=== PATIENT | female | born 2000 | race Caucasian/White ===

== ENCOUNTER 2020-01-29 00:20 | Inpatient (IN) | payer OTHER ==
[2020-01-29] MEDS ORDERED: TERBUTALINE 1 MG/1 ML INJ IVP PRN (01:18)
[2020-01-29] MEDS ORDERED: TERBUTALINE 1 MG/1 ML INJ SUB-Q PRN (01:18)
[2020-01-29] MEDS ORDERED: LIDOCAINE (2%) 20 MG/1 ML VIAL 20 ML MDV INFILTRATI ONE (01:18)
[2020-01-29] MEDS ORDERED: ePHEDrine SULFATE 50 MG/1 ML INJ IV PRN (01:18)
[2020-01-29] MEDS ORDERED: MINERAL OIL 30 ML ORAL LIQD PO PRN (01:18)
[2020-01-29] MEDS ORDERED: LACTATED RINGERS 1,000 ML ONE (01:22)
[2020-01-29] MEDS ORDERED: OXYTOCIN 20 UNIT/1000ML DRIP 20,000 MILLIUNITS/1,000 ML BAG IV ONE (01:23)
[2020-01-29] MEDS ORDERED: fentaNYL 100 MCG/2 ML INJ IV ONE (01:25)
[2020-01-29] MEDS ORDERED: LACTATED RINGERS 1,000 ML IV SCH ×2 (02:00→03:00)
[2020-01-29 02:01] LABS: Hematocrit 38.9 % (30.3-42.9); Hemoglobin 13.4 gm/dl (10.1-14.3); Mean Corpuscular HGB Conc 35 % (30-34); Mean Corpuscular Volume 94 fl (79-97); Platelet Count 193 K/mm3 (140-440); Red Blood Count 4.14 M/mm3 (3.65-5.03); Red Cell Distribution Width 14.6 % (13.2-15.2)
[2020-01-29] MEDS ORDERED: BUTORPHANOL 2 MG/1 ML INJ IV PRN (02:37)
[2020-01-29] MEDS: OXYTOCIN 20 UNIT/1000ML DRIP 20 UNITS/1,000 ML BAG IV SCH ×2 (02:52→03:43)
--- NOTE | 2020-01-29 03:06 | History and Physical Report ---
History of Present Illness Date of examination: 01/29/20 Date of admission: 01/29/2020 Chief complaint: Active labor at term History of present illness: 19yo, @ 39.5, initiated care with [facility] at 8.2 wks gestation. Her has been complicated by hyperemesis. She presents to [facility] with reports of regular painful ctxs and was found to have advanced cervical dilation. Reports + FM. Denies any VB or LOF. Labs: A+, antibody negative; rubella immune; VDRL negative; urine culture negative; HBsAg negative; HIV negative; GC/Chlamydia negative; MSAFP/Multiple markers negative; 1 hr gtgt - 89; GBS negative. Past History Past Medical History: no pertinent history Past Surgical History: no surgical history Family/Genetic History: none Social history: single, lives with family, full code. denies: smoking, alcohol abuse, prescription drug abuse, IV drug use - Obstetrical History Expected Date of Delivery: 01/31/20 Actual Gestation: 39 Week(s) 5 Day(s) : 3 Para: 2 Hx # Term Pregnancies: 2 Number of Pregnancies: 0 Spontaneous Abortions: 0 Induced : 0 Number of Living Children: 2 #1 Infant Gender: Female year: 2,[birth year] Birthweight: 2.722 kg Method of Delivery: Vaginal Gestational age at delivery: 39 Complications: none #2 Gender: Female year: 2,[birth year] Birthweight: 2.722 kg Method of Delivery: Vaginal Gestational age at delivery: 40 Complications: none Medications and Allergies Allergies Allergy/AdvReac Type Severity Reaction Status Date / Time No Known Allergies Allergy Unverified 01/29/20 01:17 Home Medications Medication Instructions Recorded Confirmed Last Taken Type Vit-Fe Fumar-FA [ 1 tab PO DAILY 01/29/20 01/29/20 1 Day Ago History Vitamin] ~01/28/20 Active Meds: Active Medications Butorphanol Tartrate (Stadol) 2 mg IV Q2H PRN PRN Reason: Pain , Severe (7-10) Ephedrine Sulfate (Ephedrine Sulfate) 10 mg IV Q2M PRN PRN Reason: Hypotension Oxytocin/Sodium Chloride (Pitocin/Ns 20 Unit/1000ml Drip) 20 units in 1,000 mls @ 125 mls/hr IV DIRECT DESIRAE Lactated Ringer's (Lactated Ringers) 1,000 mls @ 125 mls/hr IV DIRECT DESIRAE Mineral Oil (Mineral Oil) 30 ml PO QHS PRN PRN Reason: Constipation Terbutaline Sulfate (Brethine) 0.25 mg SUB-Q ONCE PRN PRN Reason: Hyperstimulation/Hypertonicity Terbutaline Sulfate (Brethine) 0.25 mg IVP ONCE PRN PRN Reason: Hyperstimulation/Hypertonicity Review of Systems All systems: negative Genitourinary: contractions - Vital Signs Vital signs: Vital Signs Temp Pulse Resp BP 99.2 F 117 H 20 01/29/20 00:40 01/29/20 00:40 01/29/20 00:40 01/29/20 00:40 Temp Pulse Resp BP Pulse Ox 99.2 F 117 H 01/29/20 00:40 01/29/20 00:46 01/29/20 00:40 01/29/20 00:46 - Physical Exam Breasts: Positive: normal Cardiovascular: Regular rate Lungs: Positive: Normal air movement Abdomen: Positive: other (gravid) Genitourinary (Female): Positive: normal external genitalia, normal perenium Vagina: Positive: normal moisture Uterus: Positive: enlarged (S=D) Extremities: Positive: normal Deep Tendon Reflex Grade: Normal +2 - Obstetrical FHR: category 1 Uterine Contraction Monitor Mode: External Cervical Dilatation: 7 Cervical Effacement Percentage: 80 station: -1 Uterine Contraction Frequency (min): 2-3 Uterine Contraction Pattern: Regular Uterine Tone Measurement Phase: Resting Uterine Contraction Intensity: Strong/Firm Results Result Diagrams: 01/29/20 01:30 Abnormal lab results 01/29/20 Range/Units 01:30 WBC 13.8 H (4.5-11.0) K/mm3 MCHC 35 H (30-34) % All other labs normal. Assessment and Plan - Patient Problems (1) Active labor at term Current Visit: Yes Status: Acute Plan to address problem: Admit to L & D Pain meds as desired Anticipate
[2020-01-29 04:37] LABS: Hematocrit 39.8 % (30.3-42.9); Hemoglobin 13.4 gm/dl (10.1-14.3)
[2020-01-29] MEDS ORDERED: IBUPROFEN 600 MG TAB PO SCH (06:00)
[2020-01-29] MEDS ORDERED: diphenhydrAMINE 25 MG CAP PO PRN (08:54)
[2020-01-29] MEDS ORDERED: WITCH HAZEL/ GLYCERIN PAD TP PRN (08:54)
[2020-01-29] MEDS ORDERED: ONDANSETRON 4 MG/2 ML INJ IV PRN (08:54)
[2020-01-29] MEDS ORDERED: PROMETHAZINE 25 MG RECT SUPP PR PRN (08:54)
[2020-01-29] MEDS ORDERED: LANOLIN/ZINC/DIMETHICONE (LANSINOH) 7 GM TP PRN (08:54)
[2020-01-29] MEDS ORDERED: PROMETHAZINE 25 MG TAB PO PRN (08:54)
[2020-01-29] MEDS ORDERED: MAGNESIUM HYDROXIDE (MOM) ORAL LIQD UDC PO PRN (08:54)
--- NOTE | 2020-01-29 09:04 | Procedure Note ---
OB Delivery Note - Delivery Date of Delivery: 01/29/20 (0244) Surgeon: KAMILA RAMIREZ (CNM) Estimated blood loss: 100cc - Vaginal Delivery presentation: vertex Delivery position: OA (TOMAS) Intrapartum events: precipitous labor- <3hr Delivery induction: none Delivery augmentation: rupture of membranes Delivery monitor: external FHT, external uterine Route of delivery: Delivery placenta: spontaneous (0249) Delivery cord: nuchal cord (x1) Episiotomy: none Delivery laceration: none Delivery comments: of viable, crying male , placed directly to maternal abdomen. Cord double clamped, cut by FOB after cessation of pulsation. Placenta spontaneously delivered, landeros, disposed per hospital policy. Uterus firm @ U-2. Perineum intact. Mother and baby safe, stable, left in care of RN. - Infant A at 1 minute: 8 at 5 minutes: 9 Gender: Male (Weight: 3302 gms (7lbs 4.4ozs) 19.5 inches)
[2020-01-29] MEDS: PRENATAL VIT27-FE FUMARATE-FOLIC ACID VIT TAB PO SCH (09:15)
[2020-01-29] MEDS: oxyCODONE /ACETAMINOPHEN 5-325MG TAB PO PRN ×3 (09:16→23:41)
[2020-01-29 21:37] LABS: Hematocrit 36.8 % (30.3-42.9); Hemoglobin 12.8 gm/dl (10.1-14.3)
--- NOTE | 2020-01-30 03:56 | Progress Note ---
Assessment and Plan A: PP Day #1 Stable P: Follow Routine Orders Depo Provera 150mg IM prior to discharge D/C home in the AM RTO in 6 Weeks Subjective - Subjective Date of service: 01/30/20 Patient reports: appetite normal, voiding normally, pain well controlled, ambulating normally : doing well, bottle feeding Objective - Vital Signs Latest vital signs: Vital Signs Temp Pulse Resp BP BP Pulse Ox 01/30/20 00:56 98.6 F 17 98/56 01/29/20 23:41 18 01/29/20 21:41 98.3 F 17 96/57 01/29/20 16:10 97.6 F 84 18 93/58 99 01/29/20 12:44 98.4 F 89 18 97/53 96 01/29/20 08:43 98.1 F 87 20 94/53 01/29/20 03:59 97 H 97/61 Intake and Output 01/29/20 01/29/20 01/30/20 14:59 22:59 06:59 Intake Total 120 600 600 Output Total 500 900 Balance -380 -300 600 Intake: Oral 120 360 Intake, Free Water 240 600 Output: Urine 500 900 Void 500 900 Other: Total, Intake Amount 120 360 Total, Output Amount 500 600 # Voids Void 1 1 - Exam Breasts: Present: normal Cardiovascular: Present: Regular rate Lungs: Present: Clear to auscultation, Normal air movement Abdomen: Present: normal appearance, soft, normal bowel sounds Uterus: Present: normal, firm, fundal height below umbilicus Extremities: Present: normal
--- NOTE | 2020-01-30 03:57 | Discharge Summary ---
Providers - Providers Date of Admission: 01/29/20 02:37 Date of discharge: 01/31/20 Attending physician: CALEB WONG MD Primary care physician: CALEB WONG MD Hospitalization Reason for admission: active labor Delivery: Episiotomy: none Laceration: none Other procedures: none complications: none Discharge diagnosis: IUP at term delivered baby: male Condition at discharge: Good Disposition: DC-01 TO HOME OR SELFCARE Plan - Provider Discharge Summary Activity: routine, no sex for 6 weeks, no heavy lifting 4 weeks, no strenuous exercise Diet: routine Instructions: routine Additional instructions: [] Smoking cessation referral if applicable(refer to patient education folder for contact #) [] Refer to [facility]'s [facility] Booklet Call your doctor immediately for: * Fever > 100.5 * Heavy vaginal bleeding ( >1 pad per hour) * Severe persistent headache * Shortness of breath * Reddened, hot, painful area to leg or breast * Drainage or odor from incision. * Keep incision clean and dry at all times and follow doctor's instructions regarding bathing/showering - Follow up plan Follow up: CALEB WONG MD [Primary Care Provider] - 6 Weeks
[2020-01-30] MEDS ORDERED: medroxyPROGESTERone ACETATE 150 MG/ML SYRINGE IM ONE (04:04)
[2020-01-30] MEDS: PRENATAL VIT27-FE FUMARATE-FOLIC ACID VIT TAB PO SCH (09:03)
[2020-01-30] MEDS: oxyCODONE /ACETAMINOPHEN 5-325MG TAB PO PRN ×2 (14:52→22:20)
[2020-01-31] MEDS: PRENATAL VIT27-FE FUMARATE-FOLIC ACID VIT TAB PO SCH (09:57)
[2020-01-31] MEDS ORDERED: medroxyPROGESTERone ACETATE 150 MG/ML SYRINGE IM SCH (10:00)
[2020-01-31 12:28] VITALS: BP 108/69
== END 2020-01-31 13:15 | disposition home or self-care (01) | DRG 807 ==
LOC: TRG 00:20 → APU 00:21 → LD 01:29 → TRG 02:37 → OB 04:18
PROVIDERS: ADMIT Obstetrics & Gynecology; ATTEND Obstetrics & Gynecology
PROC: 10E0XZZ Delivery of Products of Conception, External Approach (ICD-10-PCS; principal; 2020-01-29)
DX: O62.3 Precipitate labor (principal); Z37.0 Single live birth; O69.81X0 Labor and delivery complicated by cord around neck, without compression, not applicable or unspecified; Z3A.39 39 weeks gestation of pregnancy
CPT/HCPCS: 36415; 85014; 85018; 85027; 86850; 86900; 86901; G0378; J1050; J2590; J7120